=== PATIENT | female | born 1980 | race Caucasian/White ===

== ENCOUNTER → 2023-12-14 14:35 | Outpatient (REF) | payer BC, SELFPAY | LOC: WDC 14:35 | PROVIDERS: ATTENDING PHYSICIAN Obstetrics & Gynecology Gynecology | DX: Z12.31 Encounter for screening mammogram for malignant neoplasm of breast (principal) | CPT/HCPCS: 77063; 77067 ==

== ENCOUNTER → 2023-12-21 09:25 | Outpatient (REF) | payer BC, SELFPAY | LOC: WDC 09:25 | PROVIDERS: ATTENDING PHYSICIAN Obstetrics & Gynecology Gynecology | DX: R92.8 Other abnormal and inconclusive findings on diagnostic imaging of breast (principal) | CPT/HCPCS: 76642 ==

== ENCOUNTER → 2024-02-26 15:54 | Outpatient (REF) | payer BC, SELFPAY | LOC: RAD 15:54 | PROVIDERS: ATTENDING PHYSICIAN Nurse Practitioner Family | DX: M89.8X1 Other specified disorders of bone, shoulder (principal) | CPT/HCPCS: 73000 ==

== ENCOUNTER → 2024-12-19 14:33 | Outpatient (REF) | payer BC, SELFPAY | LOC: WDC 14:33 | PROVIDERS: ATTENDING PHYSICIAN Obstetrics & Gynecology Gynecology; FAMILY PHYSICIAN Internal Medicine | DX: R92.8 Other abnormal and inconclusive findings on diagnostic imaging of breast (principal) | CPT/HCPCS: 77062; 77066 ==